=== PATIENT | male | born 1995 | race Hispanic/Latino ===

== ENCOUNTER 2024-09-08 00:57 | Emergency (ER) | payer SELFPAY ==
[~2024-09-08] VITALS: Ht 175.3 cm; Wt 112.9 kg
[2024-09-08] MEDS: LIDOCAINE HCL 1% 20 ML VIAL INJ STA (01:28)
[2024-09-08] MEDS: cefTRIAXone 1G VIAL IM ONE (01:28)
[2024-09-08] MEDS: DIPH,PERTUSS(ACELL),TET VAC/PF 0.5 ML VIAL IM ONE (01:29)
[2024-09-08 01:36] VITALS: BP 128/87; PULSE 66; RESP 20; TEMP 98.6; O2SAT 100
--- NOTE | 2024-09-08 01:57 | ERN ---
General Chief Complaint: Wound Check Stated Complaint: C/O WOUND TO RT LOWER LEG Time Seen by MD: 00:59 Source: patient History of Present Illness Initial Comments In his is a 28-year-old male coming in to be evaluated for right lower extremity wound. Per patient he had the wound since three days ago does not know what he cut his lower extremity with he states that he has not had it evaluated. He states he washed it and cleaned it. Allergies: Coded Allergies: No Known Allergies (Unverified Allergy, Unknown, 09/08/24) Past Medical History Past Medical History: No Pertinent History Past Surgical History: None ROS Dictation CONSTITUTIONAL: No chills, no fever, no weakness, no diaphoresis, no malaise. HEAD/FACE: No signs of trauma. EENT: No eye pain, no blurred vision, no tearing, no double vision, no ear pain, no ear discharge, no nose pain, no nasal congestion, no throat pain, no throat swelling, no mouth pain. RESPIRATORY: No cough, no orthopnea, no SOB, no stridor, no wheezing. CARDIOVASCULAR: No chest pain, no edema, no palpitations, no syncope. GASTROINTESTINAL/ABDOMINAL: No abdominal pain, no constipation, no diarrhea, no nausea, no vomiting. GENITOURINARY: No abnormal discharge, no dysuria, no frequent urination, no hematuria. No complaints of pain in the genitals. MUSCULOSKELETAL: No back pain, no gout, no joint pain, no joint swelling, no muscle pain, no muscle stiffness, no neck pain. INTEGUMENTARY: No change in color, no change in hair/nails, no dryness, lesion, no lumps, no rash. NEUROLOGICAL/PSYCH: No anxiety, not depressed, no emotional problem, no headache, no numbness, no pre-existing deficit, no history of seizures, no tremors, no weakness. HEMATOLOGIC/LYMPHATIC: Not anemic, no history of blood clots, no apparent bleeding, no bruising, glands not swollen. All Systems Negative, Except as Noted. Physical Exam Physical Exam Dictation VITAL SIGNS: Reviewed. GENERAL APPEARANCE: Alert, oriented x3, no acute distress, obese. HEAD AND FACE: Non-traumatic. EYES: PERRL, pink conjunctivas, eyelid no trauma, anterior chamber clear. EARS: Pinnas intact and no signs of trauma or erythema. Ear canals clear and no discharge. TMs no erythema. NOSE: No discharge, no bleeding. OROPHARYNX: Mouth normal, teeth no caries, tongue pink. Pharynx clear, no erythema. Tonsils no exudates, no abscesses noted. Mucous membrane moist. NECK: Supple, non-tender, no thyromegaly, no masses, no JVD, no bruits. BREAST: Deferred. CHEST: No tenderness, no crepitus, no paradoxical movement, no retractions. LUNGS: Clear, well-ventilated, symmetric, no rales, no wheezing, no rhonchi, no stridor, good breath sounds bilaterally. HEART: Regular rate, regular rhythm, no murmur, no gallops. VASCULAR: No peripheral edema. ABDOMEN: Soft, positive bowel sounds, nondistended, no guarding, nontender, no rebound, no masses no hepatomegaly, no splenomegaly, no Watkins's sign, no hernias. RECTAL: Deferred. GENITAL: Deferred. NEUROLOGICAL: Normal speech, gross motor function intact, gross sensory function intact. MUSCULOSKELETAL: Neck nontender, full range of motion, back nontender, full range of motion. EXTREMITIES: Nontender, full range of motion. SKIN: Color pink, dry, no turgor, no rash, 2cm abrasions, no contusions. LYMPHATICS: Deferred. Results Laboratory and Microbiology Labs Reviewed?: Yes MDM MDM: Differential diagnosis: Laceration lower extremity, abrasion, wound, Patient is a 28-year-old gentleman coming in to be evaluated for right lower extremity injury. He states he scraped it and does not know with what. On physical exam there is a 2 cm abrasion found in the right lower extremity. Patient states that this injury occurred three days ago. Wound was cleaned and patient received IM antibiotics. Antibiotics will be provided I did advised him to keep it dry and covered. ED Course Orders Procedure Category Date Status Time Tibia/Fibula 2vws Rt RAD 09/08/24 Taken 01:03 Diph,Pertuss(Acell),Tet PHA 09/08/24 Complete Vac/Pf (Tdap) 01:30 Ceftriaxone 1g Vial PHA 09/08/24 Complete (Rocephine 1g Inj) 01:30 Lidocaine Hcl 1% 20ml PHA 09/08/24 Complete Vial (Lidocaine Hc 01:09 Current Medications Medications (Trade) Dose Ordered Sig/Radha Route PRN Reason Start Time Stop Time Status Last Admin Dose Admin Ceftriaxone Sodium (ROCEphine 1G INJ) 1 gm ONCE ONCE IM 09/08/24 01:30 09/08/24 01:31 DC 09/08/24 01:28 Diphtheria/ Tetanus/Acell Pertussis (Tdap) 0.5 ml ONCE ONCE IM 09/08/24 01:30 09/08/24 01:31 DC 09/08/24 01:29 Lidocaine HCl (Lidocaine HCl 1% 20ml Vial) 20 ml ONCE STAT INJ 09/08/24 01:09 09/08/24 01:14 DC 09/08/24 01:28 Vital Signs Date Time Temp Pulse Resp B/P (MAP) Pulse Ox O2 Delivery O2 Flow Rate FiO2 09/08/24 01:36 98.6 66 20 128/87 100 Room Air* 0 21 09/08/24 00:59 99.1 116 20 140/85 99 Room Air DX & DISP Disposition: Discharge Departure Impression: Primary Impression: Wound of right lower extremity Condition: Stable Scripts Cephalexin Monohydrate (Keflex) 500 Mg Cap 1 CAP PO TID for 10 Days, #30 CAP 0 Refills Prov: FABIAN NICOLE MD 09/08/24 Additional Instructions: FOLLOW-UP WITH PRIMARY CARE PROVIDER IN 1 TO 2 DAYS. TAKE MEDICATIONS DIREC LYRIC HERE IN THE EMERGENCY ROOM. OKAY TO CONTINUE HOME MEDICATIONS UNLESS OTHERWISE DISCUSSED DURING YOUR VISIT IN THE EMERGENCY ROOM TODAY. RETURN TO YOUR NEAREST EMERGENCY ROOM IF SYMPTOMS WORSEN OR IF THERE IS NO IMPROVEMENT. CALL 911 IF YOU NEED IMMEDIATE ASSISTANCE. TAKE TYLENOL [id number] NEEDED AND IF NO CONTRAINDICATIONS ARE PRESENT. INCREASE ORAL HYDRATION. A WOUND CULTURE OR URINE CULTURE WAS ORDERED HERE IN THE EMERGENCY ROOM DEPARTMENT PLEASE FOLLOW-UP WITH PRIMARY CARE PROVIDER AND ADVISE THEM TO GET REPEAT PORTS FROM OUR FACILITY. IF YOU HAD ANY PERRY WRAP/SPLINTS THAT WERE APPLIED HERE, PLEASE DO NOT REMOVE THEM UNTIL YOU SEE YOUR PRIMARY CARE OR SPECIALTY. Referrals: Referrals: RUBY CASTILLO MD (PCP) Time of Disposition: 02:05 FABIAN NICOLE MD Sep 08, 2024 01:57
[2024-09-08] MEDS ORDERED: CEPH500B PO (02:06)
--- NOTE | 2024-09-08 09:12 | HMCIMG ---
TIBIA/FIBULA 2VWS RT HISTORY: Wound COMPARISON: None TECHNIQUE: 2 images of right tibia and fibula were obtained. FINDINGS: There is no acute displaced fracture or dislocation. IMPRESSION: 1. Findings as described above.
== END 2024-09-08 02:12 | disposition home or self-care (01) ==
LOC: EDH 00:57
DX: S80.811A Abrasion, right lower leg, initial encounter (principal); X58.XXXA Exposure to other specified factors, initial encounter; Y93.89 Activity, other specified; Y92.89 Other specified places as the place of occurrence of the external cause; Y99.8 Other external cause status
CPT/HCPCS: 99284; 90715; 73590; 96372; 90471; J0696

== ENCOUNTER 2024-10-02 01:28 | Emergency (ER) | payer SELFPAY ==
[~2024-10-02] VITALS: Ht 175.3 cm; Wt 113.4 kg
[~2024-10-02 01:28] MED LIST: CEPH500B PO
[2024-10-02 02:10] LABS: BASOPHILS # (AUTO) 0.04 K/uL (0.00-0.20); BASOPHILS % (AUTO) 0.5 % (0.0-5.0); EOSINOPHILS # (AUTO) 0.18 K/uL (0.00-0.70); EOSINOPHILS % (AUTO) 2.2 % (0.0-8.0); HEMATOCRIT 44.3 % (42-54); IMMATURE GRANULOCYTE ABSOLUTE 0.01 K/uL (0-1); LYMPHOCYTES # (AUTO) 3.4 K/uL (1.0-4.8); LYMPHOCYTES % (AUTO) 41.7 % (21.0-51.0); MEAN CORPUSCULAR HEMOGLOBIN 29.9 pg (27.0-33.0); MEAN CORPUSCULAR HGB CONC 34.3 g/dL (32.0-36.0); MONOCYTES # (AUTO) 0.9 K/uL (0.1-1.0); MONOCYTES % (AUTO) 11.1 % (3.0-13.0); NEUTROPHILS # (AUTO) 3.6 K/uL (1.8-7.7); NEUTROPHILS % (AUTO) 44.4 % (40.0-77.0); PLATELET COUNT (AUTO) 181 K/uL (130-400); RED BLOOD CELL COUNT(AUTO) 5.09 MIL/uL (4.50-6.20); RED CELL DISTRIBUTION WIDTH 12.6 % (11.0-15.5); WHITE BLOOD COUNT (AUTO) 8.1 K/uL (4.8-10.8)
[2024-10-02 02:19] LABS: CREATININE 1.1 mg/dL (0.5-1.3); POTASSIUM 3.7 mmol/L (3.5-5.1)
[2024-10-02] MEDS ORDERED: SULF1TAB42 PO (02:37)
[2024-10-02] MEDS: cefTRIAXone 1G VIAL IM ONE (02:58)
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
[2024-10-02 03:35] VITALS: BP 132/88; PULSE 92; RESP 16; TEMP 98.2; O2SAT 98
== END 2024-10-02 03:39 | disposition home or self-care (01) ==
LOC: EDH 01:28
DX: S81.801A Unspecified open wound, right lower leg, initial encounter (principal); Z79.899 Other long term (current) drug therapy; W01.0XXA Fall on same level from slipping, tripping and stumbling without subsequent striking against object, initial encounter; Y93.89 Activity, other specified; Y92.89 Other specified places as the place of occurrence of the external cause; Y99.8 Other external cause status
CPT/HCPCS: 99283; 80048; 85025; 36415; 96372; J0696

== ENCOUNTER 2024-11-06 10:00 | Emergency (ER) | payer SELFPAY ==
[~2024-11-06] VITALS: Ht 175.3 cm; Wt 102.1 kg
[~2024-11-06 10:00] MED LIST changes: +SULF1TAB42 PO
[2024-11-06 10:57] LABS: BASOPHILS # (AUTO) 0.03 K/uL (0.00-0.20); BASOPHILS % (AUTO) 0.2 % (0.0-5.0); EOSINOPHILS # (AUTO) 0.06 K/uL (0.00-0.70); EOSINOPHILS % (AUTO) 0.4 % (0.0-8.0); HEMATOCRIT 48.4 % (42-54); IMMATURE GRANULOCYTE ABSOLUTE 0.04 K/uL (0-1); LYMPHOCYTES % (AUTO) 6.9 % (21.0-51.0); MEAN CORPUSCULAR HEMOGLOBIN 29.9 pg (27.0-33.0); MEAN CORPUSCULAR HGB CONC 33.9 g/dL (32.0-36.0); MEAN CORPUSCULAR VOLUME 88.3 fL (79-99); NEUTROPHILS # (AUTO) 12.1 K/uL (1.8-7.7); NEUTROPHILS % (AUTO) 85.2 % (40.0-77.0); PLATELET COUNT (AUTO) 202 K/uL (130-400); RED BLOOD CELL COUNT(AUTO) 5.48 MIL/uL (4.50-6.20); RED CELL DISTRIBUTION WIDTH 12.9 % (11.0-15.5); WHITE BLOOD COUNT (AUTO) 14.2 K/uL (4.8-10.8)
[2024-11-06 11:05] LABS: CREATININE 1.1 mg/dL (0.5-1.3); POTASSIUM 4.6 mmol/L (3.5-5.1)
[2024-11-06 11:11] LABS: ALBUMIN 4.1 g/dL (3.5-5.0); BILIRUBIN,DIRECT 0.1 mg/dL (0.0-0.3); BILIRUBIN,TOTAL 0.6 mg/dL (0.2-1.0); TOTAL PROTEIN, SERUM 8.6 g/dL (6.0-8.3)
[2024-11-06] MEDS ORDERED: ONDA-243 PO (11:51)
[2024-11-06] MEDS: ondanSETRON ODT 4MG TAB SL ONE (12:04)
--- NOTE | 2024-11-06 12:09 | ERN ---
General Chief Complaint: Nausea,Vomiting,Diarrhea Stated Complaint: NAUSEA Time Seen by MD: 10:07 Time Seen by Midlevel: 10:07 Source: patient History of Present Illness Initial Comments 29-year-old male who presents to the emergency department due to nausea, vomiting, diarrhea onset this morning at 4:00 a.m.. Patient reports he ate some food yesterday that may have caused his symptoms. Denies any chest pain, painful urination, bloody stools or further associated symptoms. Denies any significant past medical history. Allergies: Coded Allergies: No Known Allergies (Unverified Allergy, Unknown, 09/08/24) Home Meds Active Scripts Ondansetron (Ondansetron Odt) 4 Mg Tab.rapdis, 4 MG PO TID for 3 Days, #9 TAB Prov:YVONNE BLAS 11/06/24 Sulfamethoxazole/Trimethoprim (Bactrim Ds Tablet) 800 Mg-160 Mg Tablet, 1 TAB PO BID for 7 Days, #14 TAB 0 Refills Prov:SHAYNA YEBOAH MD 10/02/24 Cephalexin Monohydrate (Keflex) 500 Mg Cap, 1 CAP PO TID for 10 Days, #30 CAP 0 Refills Prov:FABIAN NICOLE MD 09/08/24 Past Medical History Past Medical History: No Pertinent History Past Surgical History: None ROS Dictation Constitutional: Negative for fever,chills, and weight loss Eyes: Negative for injury, pain,redness, and discharge ENT: Negative for injury,pain or swelling Cardiovascular: Negative for chest pain, palpitations, and edema Respiratory: Negative for shortness of breath, cough, and wheezing, Abdomen/GI: Positive for abdominal discomfort nausea, vomiting, diarrhea Back: Negative for injury and pain : Negative for painful urination, bleeding or discharge MS/Extremity: Negative for injury and deformity Skin: Negative for rash, and discoloration Neuro: Negative for headache, weakness, numbness, tingling, and seizure Psych: Negative for suicide ideation, homicidal ideation, and hallucinations Physical Exam Physical Exam Dictation General: awake, alert, no acute distress Head/Face: Normocephalic, atraumatic Eyes: PERRL, EOMI, normal conjunctiva ENT: oral cavity clear, oral mucosa moist Neck: Supple, normal range of motion Cardiovascular: RRR, normal S1/S2 Respiratory: CTAB, no respiratory distress, no rales or wheezes Abdomen: Soft, non-tender, non-distended, normal bowel sounds, no guarding or rebound. Skin: Warm, dry, normal turgor, no rash MS/Extremity: Pulses equal, no cyanosis, neurovascular intact, FROM Neuro: COAx4, GCS 15, strength 5/5, CN 2-12 intact, normal cerebellar exam, normal gait Psych: Normal behavior, mood, and affect normal Results Laboratory and Microbiology Lab and Micro Result Laboratory Tests Test 11/06/24 10:42 White Blood Count 14.2 K/uL (4.8-10.8) H Red Blood Count 5.48 MIL/uL (4.50-6.20) Hemoglobin 16.4 g/dL (14.0-18.0) Hematocrit 48.4 % (42-54) Mean Corpuscular Volume 88.3 fL (79-99) Mean Corpuscular Hemoglobin 29.9 pg (27.0-33.0) Mean Corpuscular Hemoglobin Concent 33.9 g/dL (32.0-36.0) Red Cell Distribution Width 12.9 % (11.0-15.5) Platelet Count 202 K/uL (130-400) Mean Platelet Volume 9.5 fL (7.5-10.5) Immature Granulocyte % (Auto) 0.3 % (0-1) Neutrophils (%) (Auto) 85.2 % (40.0-77.0) H Lymphocytes (%) (Auto) 6.9 % (21.0-51.0) L Monocytes (%) (Auto) 7.0 % (3.0-13.0) Eosinophils (%) (Auto) 0.4 % (0.0-8.0) Basophils (%) (Auto) 0.2 % (0.0-5.0) Neutrophils # (Auto) 12.1 K/uL (1.8-7.7) H Lymphocytes # (Auto) 1.0 K/uL (1.0-4.8) Monocytes # (Auto) 1.0 K/uL (0.1-1.0) Eosinophils # (Auto) 0.06 K/uL (0.00-0.70) Basophils # (Auto) 0.03 K/uL (0.00-0.20) Absolute Immature Granulocyte (auto 0.04 K/uL (0-1) Nucleated Red Blood Cells 0.0 % (0.0-0.19) White Cell Morphology Comment See comments Sodium Level 141 mmol/L (136-145) Potassium Level 4.6 mmol/L (3.5-5.1) Chloride Level 104 mmol/L (101-111) Carbon Dioxide Level 27 mmol/L (21-32) Blood Urea Nitrogen 22 mg/dL (7-18) H Creatinine 1.1 mg/dL (0.5-1.3) Glomerular Filtration Rate Calc 93 mL/min (>90) Random Glucose 127 mg/dL (70-105) H Total Calcium 9.6 mg/dL (8.5-10.1) Total Bilirubin 0.6 mg/dL (0.2-1.0) Direct Bilirubin 0.1 mg/dL (0.0-0.3) Aspartate Amino Transf (AST/SGOT) 36 U/L (10-37) Alanine Aminotransferase (ALT/SGPT) 77 U/L (12-78) Alkaline Phosphatase 145 U/L (50-136) H Total Protein 8.6 g/dL (6.0-8.3) H Albumin 4.1 g/dL (3.5-5.0) Lipase 37 U/L (16-77) Labs Reviewed?: Yes MDM MDM: Differential diagnosis: Gastroenteritis, viral illness, diarrhea Rationale: 29-year-old male who presents to the emergency department due to nausea, vomiting, diarrhea onset this morning at 4:00 a.m.. Patient reports he ate some food yesterday that may have caused his symptoms. Denies any chest pain, painful urination, bloody stools or further associated symptoms. Denies any significant past medical history. Per physical examination patient is in no acute distress, nontoxic appearing, abdomen is soft nontender. Labs obtained indicate mild WBC elevation 14.2, BUN 22, mild elevated alk-phos of 145. No abdominal CT indicated due to patient's abdomen being soft nontender. IV fluids and Zofran administered in the ED. Patient was educated on findings and diagnosis. Advised to follow up with PCP. Return to the emergency department if any worsening symptoms. Patient verbalized understanding. Patient stable for discharge. There are no social concerns with this patient. I independently interpreted the test that were performed, results were reviewed by me and considered findings on radiology if ordered. Medical management and examination interpretation discussions were had by me with other qualified healthcare professionals as indicated for the patient's care. ED Course Orders Procedure Category Date Status Time Cbc With Differential LAB 11/06/24 Complete 10:26 Basic Metabolic Panel LAB 11/06/24 Complete 10:26 Lipase LAB 11/06/24 Complete 10:26 Hepatic Function Panel LAB 11/06/24 Complete 10:26 Ondansetron Odt 4mg PHA 11/06/24 Complete Tab (Zofran 4mg Odt) 10:30 0.9%Nacl 1000ml (Ns PHA 11/06/24 Complete 1000ml) 11:30 Current Medications Medications (Trade) Dose Ordered Sig/Radha Route PRN Reason Start Time Stop Time Status Last Admin Dose Admin Ondansetron HCl (zoFRAN 4MG ODT) 4 mg ONCE ONCE SL 11/06/24 10:30 11/06/24 10:31 DC 11/06/24 12:04 Sodium Chloride 1,000 ml @ 0 mls/hr ONCE ONCE IV 11/06/24 11:30 11/06/24 11:31 DC 11/06/24 12:10 Vital Signs Date Time Temp Pulse Resp B/P (MAP) Pulse Ox O2 Delivery O2 Flow Rate FiO2 11/06/24 13:27 98.4 108 18 119/71 98 Room Air* 0 21 11/06/24 12:12 98.8 110 20 123/80 98 Room Air* 0 21 11/06/24 10:01 98.2 114 16 146/98 96 Room Air 0 DX & DISP Disposition: Discharge Departure Impression: Primary Impression: Diarrhea Condition: Stable Scripts Ondansetron (Ondansetron Odt) 4 Mg Tab.rapdis 4 MG PO TID for 3 Days, #9 TAB Prov: YVONNE BLAS 11/06/24 Additional Instructions: Discharge home. Rest. Follow up with primary care in 24 hours. Return to the ER for any acute changes or worsening symptoms. If any medications were prescribed take as directed. Okay to continue home medications unless otherwise discussed during your visit in the emergency room today. Patient was also advised to follow-up with primary care physician in 1 to 2 days for continued monitoring. Referrals: RUBY CASTILLO MD (PCP) I performed the substantive portion of the visit. I have reviewed and personally made and approve the management plan that is documented in the notes by myself or the MARCO A. I acknowledge full responsibility for the patient's management plan. YVONNE BLAS November 06, 2024 12:09
[2024-11-06] MEDS: 0.9%NACL 1000ML 1,000 ML IV ONE (12:10)
[2024-11-06 13:27] VITALS: BP 119/71; PULSE 108; RESP 18; TEMP 98.5; O2SAT 98
--- NOTE | 2024-11-06 13:30 | NUR ---
dc patient was dc'd by dr. whitehead today, I dc'd patients iv with cath still intact, i explained to patient to follow up with pcp and consults, i also provided patient with info based on diagnosis, patient ambulated out of ed, no complications
== END 2024-11-06 12:30 | disposition home or self-care (01) ==
LOC: EDH 10:00
DX: R19.7 Diarrhea, unspecified (principal); R11.2 Nausea with vomiting, unspecified; Z79.899 Other long term (current) drug therapy
CPT/HCPCS: 99283; 96360; 80076; 80048; 83690; 85025; 36415; J7030 ×2